=== PATIENT | female | born 1940 | race Caucasian/White ===

== ENCOUNTER 2019-01-19 19:15 | Emergency (ER) | payer OTHER ==
[~2019-01-19] VITALS: Ht 157.5 cm; Wt 68.0 kg
[2019-01-19 19:18] VITALS: BP_SYST 132
--- NOTE | 2019-01-19 19:18 | NUR ---
Patient to ER bed 06 to gown for evaluation. Side rails up.
--- NOTE | 2019-01-19 19:50 | NUR ---
Patient aaox4 with complaints of vaginal bleeding that started [id number] today. Patient denies any lightheadedness, headache, sob, and dizziness. Left lower abdomen cramping and pain /. Non radiating pain that is tolerable. Ambulates with walker. Continent of B/B most of the time. Last BM 01/19/19. No fever at this time. Addendum: 01/19/19 at 1956 by MICHAEL Patient lives at [facility]
--- NOTE | 2019-01-19 19:56 | NUR ---
ER at bedside examining patient.
--- NOTE | 2019-01-19 20:30 | NUR ---
# 22 gauge angiocath placed to left forearm. Use of asceptic technique. Opsite placed over site. Blood return noted. Blood for lab drawn from site. Flushed with 10 cc of normal saline. No evidence of infiltration noted. Patient tolerated well.
--- NOTE | 2019-01-19 20:40 | NUR ---
Straight Catheter inserted. Urine sample obtained and sent to lab.
[2019-01-19 20:59] LABS: HEMATOCRIT 29.2 % (36-48); HEMOGLOBIN 9.8 g/dL (12.0-16.0); MEAN CORPUSCULAR HEMOGLOBIN 33 pg (27-31); MEAN CORPUSCULAR HGB CONC 34 % (32-36); MEAN CORPUSCULAR VOLUME 97 fL (79.0-98.0); PLATELET COUNT (AUTO) 238 K/uL (130-430); RED CELL DISTRIBUTION WIDTH 12.7 % (9.0-15.0); WHITE BLOOD COUNT (AUTO) 7.6 K/uL (4.8-10.8)
[2019-01-19 21:00] LABS: BASOPHILS # (AUTO) 0.1 K/uL (0.0-0.2); BASOPHILS % (AUTO) 1.4 % (0.0-2.0); EOSINOPHILS # (AUTO) 0.1 K/uL (0.0-0.4); EOSINOPHILS % (AUTO) 1.5 % (0.0-4.0); LYMPHOCYTES % (AUTO) 25.9 % (20.5-51.5); MONOCYTES # (AUTO) 0.7 K/uL (0.0-1.0); MONOCYTES % (AUTO) 8.8 % (1.7-9.3); NEUTROPHILS # (AUTO) 4.7 K/uL (1.8-7.7); NEUTROPHILS % (AUTO) 62.4 % (40.0-70.0)
--- NOTE | 2019-01-19 21:05 | NUR ---
Patient taken for CT scan.
[2019-01-19 21:06] LABS: INR 0.9 (0.8-1.2)
[2019-01-19 21:09] LABS: PROTHROMBIN TIME 9.6 SECS (9.5-12.5)
[2019-01-19 21:11] LABS: ANION GAP 9 (5-15); CALCIUM 8.8 mg/dL (8.4-11.0); CHLORIDE 102 mmol/L (98-107); CREATININE 0.96 mg/dL (0.55-1.30); GLUCOSE 100 mg/dL (70-99); POTASSIUM 4.1 mmol/L (3.5-5.1); SODIUM SERUM 137 mmol/L (136-145); UREA NITROGEN, BLOOD 22 mg/dL (8-21)
[2019-01-19 21:18] LABS: ALANINE AMINOTRANSFERASE 15 U/L (12-78); ALBUMIN 3.2 g/dL (3.4-4.8); ASPARTATE AMINOTRANSFERASE 15 U/L (10-37); TOTAL BILIRUBIN 0.2 mg/dL (0.0-1.0)
--- NOTE | 2019-01-19 21:25 | NUR ---
Arrived back from CT to bed 6
[2019-01-19] MEDS: NACL 0.9% 1,000 ML IV ONE (22:00)
[2019-01-19 23:11] LABS: BILIRUBIN,URINE NEGATIVE (NEGATIVE); BLOOD, URINE 3+ (NEGATIVE); CLARITY/URINE HAZY (CLEAR); COLOR,URINE YELLOW (YELLOW); GLUCOSE,URINE NEGATIVE (NEGATIVE); KETONES,URINE NEGATIVE (NEGATIVE); LEUKOCYTE ESTERASE ,URINE 2+ (NEGATIVE); NITRITE, URINE POSITIVE (NEGATIVE); PH,URINE 5.5 (5.0-8.0); PROTEIN URINE NEGATIVE (NEGATIVE); UROBILINOGEN,URINE 0.2 (0.2-1.0)
[2019-01-19 23:19] LABS: BACTERIA,URINE MANY /HPF (None Seen); WBC,URINE 50-80 /HPF (0-3)
--- NOTE | 2019-01-19 23:36 | NUR ---
ER at bedside examining patient and explaining care.
[2019-01-19] MEDS: LEVOFLOXACIN 500 MG/D5W 100 ML IV ONE (23:45)
[2019-01-20 00:50] VITALS: BP_SYST 130
--- NOTE | 2019-01-20 00:50 | NUR ---
Patient given written and verbal discharge instructions and verbalizes understanding. ER MD discussed with patient the results and treatment provided. Patient in stable condition. ID arm band removed. IV catheter removed intact and dressing applied, no active bleeding. Rx of Cipro given. Patient educated on pain management and to follow up with PMD. Pain Scale 0/10. Opportunity for questions provided and answered. Medication side effect fact sheet provided.
== END 2019-01-20 00:50 | disposition home or self-care (01) ==
LOC: SED 19:15
DX: N30.90 Cystitis, unspecified without hematuria (principal); Z88.0 Allergy status to penicillin
CPT/HCPCS: 36415; 74176; 80053; 81000; 83605; 84484; 85025; 85610; 85730; 87040; 87086; 87186; 93005; 96365; 99284; J1956; J7030; 96361

== ENCOUNTER 2021-08-18 19:31 | Emergency (ER) | payer OTHER ==
[~2021-08-18] VITALS: Ht 157.5 cm; Wt 74.8 kg
[2021-08-18 19:41] VITALS: BP_SYST 163
[2021-08-18] MEDS ORDERED: ACETAMINOPHEN 325 MG TABLET PO ONE (23:15)
[2021-08-19] MEDS ORDERED: IBUP-1970 PO (03:37)
[2021-08-19] MEDS ORDERED: IBUPROFEN 800 MG TABLET ONE (03:44)
[2021-08-19 08:50] VITALS: BP_SYST 158
== END 2021-08-19 08:51 ==
LOC: SED 19:31
DX: S32.10XA Unspecified fracture of sacrum, initial encounter for closed fracture (principal); Z88.0 Allergy status to penicillin; Z88.5 Allergy status to narcotic agent; W18.39XA Other fall on same level, initial encounter; Y93.89 Activity, other specified; Y92.89 Other specified places as the place of occurrence of the external cause; Y99.8 Other external cause status
CPT/HCPCS: 70450-TC; 72125-TC; 72131; 72192-TC; 76376; 99285